=== PATIENT | male | born 1975 | race Caucasian/White ===

== ENCOUNTER 2025-02-07 12:59 | Observation (INO) | payer OTHER ==
--- NOTE | 2025-02-07 15:22 | ED ---
Alcohol HPI - General Chief Complaint: Alcohol Stated Complaint: detox Time Seen by Provider: 02/07/25 15:19 Source: patient, RN notes reviewed Mode of arrival: ambulatory - History of Present Illness Initial Comments: 49-year-old male male presenting for alcohol detox. States he drinks approximately 1/5 a day. Last drink was this morning. Denies history of withdrawal seizures. Admits to shakiness and diarrhea. Denies nausea, vomiting, fevers. - Related Data Allergies Allergy/AdvReac Type Severity Reaction Status Date / Time No Known Allergies Allergy Verified 02/07/25 13:18 Review of Systems ROS Statement: Those systems with pertinent positive or pertinent negative responses have been documented in the HPI. ROS Other: All systems not noted in ROS Statement are negative. Past Medical History Past Medical History: GERD/Reflux, Hypertension Additional Past Medical History / Comment(s): Chronic alcohol History of Any Multi-Drug Resistant Organisms: None Reported Past Surgical History: No Surgical Hx Reported Past Psychological History: Anxiety Smoking Status: Current every day smoker Past Alcohol Use History: Abuse, Daily Past Drug Use History: Marijuana General Exam - General Exam Comments Initial Comments: Visual Physical Exam Vital signs reviewed General: Well-appearing, nontoxic, no acute distress. Head: Normocephalic, atraumatic Eyes: PERRLA, EOMI ENT: Airway patent Chest: Nonlabored breathing Skin: No visual rash, normal skin tone Neuro: Alert and oriented 3 Musculoskeletal: No gross abnormalities General appearance: alert, in no apparent distress, anxious Head exam: Present: atraumatic, normocephalic, normal inspection Eye exam: Present: normal appearance, PERRL, EOMI. Absent: scleral icterus, conjunctival injection, periorbital swelling ENT exam: Present: normal exam, mucous membranes moist Respiratory exam: Present: normal lung sounds bilaterally. Absent: respiratory distress, wheezes, rales, rhonchi, stridor Cardiovascular Exam: Present: regular rate, normal rhythm, normal heart sounds. Absent: systolic murmur, diastolic murmur, rubs, gallop, clicks GI/Abdominal exam: Present: soft, normal bowel sounds. Absent: distended, tenderness, guarding, rebound, rigid Neurological exam: Present: alert, oriented X3 Psychiatric exam: Present: normal affect, normal mood Skin exam: Present: warm, dry, intact, normal color. Absent: rash Course Vital Signs 02/07/25 13:14 Temperature 98.3 F Pulse Rate 85 Respiratory 20 Rate Blood Pressure 156/110 O2 Sat by Pulse 98 Oximetry Medical Decision Making - Medical Decision Making I completed the quick note portion of this chart signed Rowena Davis PA-C Was pt. sent in by a medical professional or institution (ROXY Elliott, INTELLIGENCE OFFICER BASIC, urgent care, hospital, or penitentiary...) When possible be specific @ -No Did you speak to anyone other than the patient for history (EMS, parent, family, police, friend...)? What history was obtained from this source @ -No Did you review nursing and triage notes (agree or disagree)? Why? @ -I reviewed and agree with nursing and triage notes Were old charts reviewed (outside hosp., previous admission, EMS record, old EKG, old radiological studies, urgent care reports/EKG's, penitentiary records)? Report findings @ -No old charts were reviewed Differential Diagnosis (chest pain, altered mental status, abdominal pain women, abdominal pain men, vaginal bleeding, weakness, fever, dyspnea, syncope, headache, dizziness, GI bleed, back pain, seizure, CVA, palpatations, mental health, musculoskeletal)? @ -Not applicable EKG interpreted by me (3pts min.). @ -As above X-rays interpreted by me (1pt min.). @ -None done CT interpreted by me (1pt min.). @ -None done U/S interpreted by me (1pt. min.). @ -None done What testing was considered but not performed or refused? (CT, X-rays, U/S, labs)? Why? @ -None What meds were considered but not given or refused? Why? @ -None Did you discuss the management of the patient with other professionals (professionals i.e. ROXY Elliott, INTELLIGENCE OFFICER BASIC, lab, RT, psych nurse, social services manager, financial accounting analyst, teacher, aoc aadc operations staff officer, case resolution specialist)? Give summary @ -I spoke with Dr. Batista who accepts admission Was smoking cessation discussed for >3mins.? @ -No Was critical care preformed (if so, how long)? @ -No Were there social determinants of health that impacted care today? How? (Homelessness, low income, unemployed, alcoholism, drug addiction, transportatio n, low edu. Level, literacy, decrease access to med. care, intermediate, rehab)? @ -No Was there de-escalation of care discussed even if they declined (Discuss DNR or withdrawal of care, Hospice)? DNR status @ -No What co-morbidities impacted this encounter? (DM, HTN, Smoking, COPD, CAD, Cancer, CVA, ARF, Chemo, Hep., AIDS, mental health diagnosis, sleep apnea, morbid obesity)? @ -None Was patient admitted / discharged? Hospital course, mention meds given and route, prescriptions, significant lab abnormalities, going to OR and other pertinent info. @ -Admitted. 49-year-old male presenting for alcohol detox. Last drink was this morning. Patient is experiencing shakiness, anxiety. He is hypertensive. Provided with IV fluids and dose of Ativan. Lab work remarkable for white blood cell count 12, hypokalemia of 3.0, hypomagnesemia at 1.3. CIWA protocol initiated and patient will be admitted to medicine for alcohol withdrawal. Started on potassium and magnesium replacement. Patient will be admitted to medicine for alcohol withdrawal. Case was discussed with my ED attending Dr. Lara Undiagnosed new problem with uncertain prognosis? @ -No Drug Therapy requiring intensive monitoring for toxicity (Heparin, Nitro, Insulin, Cardizem)? @ -No Were any procedures done? @ -No Diagnosis/symptom? @ -Alcohol withdrawal Acute, or Chronic, or Acute on Chronic? @ -Acute Uncomplicated (without systemic symptoms) or Complicated (systemic symptoms)? @ -Complicated Side effects of treatment? @ -No Exacerbation, Progression, or Severe Exacerbation? @ -No Poses a threat to life or bodily function? How? (Chest pain, USA, AL, pneumonia, PE, COPD, DKA, ARF, appy, cholecystitis, CVA, Diverticulitis, Homicidal, Suicidal, threat to staff... and all critical care pts) @ -Yes - Lab Data Result diagrams: 02/07/25 15:52 02/07/25 15:52 Lab Results 02/07/25 02/07/25 02/07/25 Range/Units 15:52 15:52 15:52 WBC 12.84 H (4.50-10.00) 10*3/uL RBC 3.90 L (4.40-5.60) 10*6/uL Hgb 12.7 L (13.0-17.0) g/dL Hct 34.7 L (39.6-50.0) % MCV 89.0 (80.0-97.0) fL MCH 32.6 H (27.0-32.0) pg MCHC 36.6 (32.0-37.0) g/dL Plt Count 357 (140-440) 10*3/uL MPV 9.0 L (9.5-12.2) fL Immature Gran % (Auto) 0.4 % Neutrophils % 74.8 % Lymphocytes % 16.4 % Monocytes % 7.6 % Eosinophils % 0.2 % Basophils % 0.6 % Immature Gran # 0.05 H (0.00-0.04) 10*3/uL Neutrophils # 9.61 H (1.80-7.70) 10*3/uL Lymphocytes # 2.10 (0.90-5.00) 10*3/uL Monocytes # 0.97 (0.20-1.00) 10*3/uL Eosinophils # 0.03 L (0.04-0.35) 10*3/uL Basophils # 0.08 (0.00-0.10) 10*3/uL PT 11.1 (10.0-12.5) sec INR 1.0 (<1.2) APTT 24.7 (22.0-30.0) sec Sodium 138 (137-145) mmol/L Potassium 3.0 L (3.5-5.1) mmol/L Chloride 100 (98-107) mmol/L Carbon Dioxide 23 (22-30) mmol/L Anion Gap 15 mmol/L BUN 13 (9-20) mg/dL Creatinine 1.03 (0.66-1.25) mg/dL Est GFR (CKD-EPI)AfAm >90 (>60 ml/min/1.73 sqM) Est GFR (CKD-EPI)NonAf 85 (>60 ml/min/1.73 sqM) Glucose 104 H (74-99) mg/dL Calcium 9.8 (8.4-10.2) mg/dL Phosphorus 3.4 (2.5-4.5) mg/dL Magnesium 1.3 L (1.6-2.3) mg/dL Total Bilirubin 1.2 (0.2-1.3) mg/dL AST 55 (17-59) U/L ALT 37 (4-49) U/L Alkaline Phosphatase 174 H (38-126) U/L Total Protein 7.8 (6.3-8.2) g/dL Albumin 4.7 (3.5-5.0) g/dL Serum Alcohol <10 mg/dL - EKG Data -: EKG Interpreted by Me EKG Comments: EKG reveals normal sinus rhythm with no acute ST changes. Ventricular rate 91 bpm, MS interval 136, QRS duration 94, QT/QTc 374/423 Disposition Clinical Impression: Alcohol withdrawal Disposition: ADMITTED IP TO THIS HOSP Referrals: None,Stated [Primary Care Provider] - 1-2 days Time of Disposition: 19:29
[2025-02-07 16:00] LABS: Basophils # (A) 0.08 10*3/uL (0.00-0.10); Basophils % (A) 0.6 %; Eosinophils # (A) 0.03 10*3/uL (0.04-0.35); Eosinophils % (A) 0.2 %; HCT 34.7 % (39.6-50.0); HGB 12.7 g/dL (13.0-17.0); Lymphocytes % (A) 16.4 %; MCH 32.6 pg (27.0-32.0); MCHC 36.6 g/dL (32.0-37.0); Monocytes # (A) 0.97 10*3/uL (0.20-1.00); Monocytes % (A) 7.6 %; Neutrophils # (A) 9.61 10*3/uL (1.80-7.70); Neutrophils % (A) 74.8 %; Platelet Count 357 10*3/uL (140-440); RDW 13.3 % (11.5-14.5); WBC 12.84 10*3/uL (4.50-10.00)
[2025-02-07 16:08] LABS: Prothrombin Time 11.1 sec (10.0-12.5)
[2025-02-07 16:09] LABS: Partial Thromboplastin Time 24.7 sec (22.0-30.0)
[2025-02-07 16:10] LABS: ALT 37 U/L (4-49); AST 55 U/L (17-59); African American GFR (CKD) >90 (>60 ml/min/1.73 sqM); Albumin 4.7 g/dL (3.5-5.0); Alcohol <10 mg/dL; Alkaline Phosphatase 174 U/L (38-126); Anion Gap 15 mmol/L; Blood Urea Nitrogen 13 mg/dL (9-20); Calcium 9.8 mg/dL (8.4-10.2); Carbon Dioxide 23 mmol/L (22-30); Chloride 100 mmol/L (98-107); Glucose 104 mg/dL (74-99); Magnesium 1.3 mg/dL (1.6-2.3); Non-African American GFR(CKD) 85 (>60 ml/min/1.73 sqM); Phosphorus 3.4 mg/dL (2.5-4.5); Sodium 138 mmol/L (137-145); Total Bilirubin 1.2 mg/dL (0.2-1.3); Total Protein 7.8 g/dL (6.3-8.2)
[2025-02-07] MEDS ORDERED: LORazepam 0.5 MG TAB PO PRN (19:24)
[2025-02-07] MEDS ORDERED: LORazepam 1 MG/0.5 ML VIAL IV PRN ×2 (19:24)
[2025-02-07] MEDS ORDERED: NALOXONE 0.4 MG/ML 1 ML VIAL IV PRN (19:27)
[2025-02-07] MEDS ORDERED: IBUPROFEN 400 MG TAB PO PRN (19:27)
[2025-02-07] MEDS ORDERED: Potassium Replacement Protocol 1 EACH MISC MISCELLANE PRN (19:33)
[2025-02-07] MEDS ORDERED: Magnesium Replacement Protocol 1 EACH MISC MISCELLANE PRN (19:35)
[2025-02-07] MEDS: LORazepam 1 MG/0.5 ML VIAL IV STA (20:01)
[2025-02-07] MEDS: SODIUM CHLORIDE 0.9% 1,000 ML IV SCH (20:01)
[2025-02-07] MEDS: THIAMINE 100 MG/ML 2 ML VIAL IM STA (20:02)
[2025-02-07] MEDS: MAGNESIUM SULFATE-D5W PMX 1 GM in DEXTROSE/WATER 1 100ML.BAG IVPB SCH (20:03)
[2025-02-07] MEDS: POTASSIUM CHLORIDE 20 MEQ in WATER FOR INJECTION 1 100ML.BAG IVPB SCH (20:14)
[2025-02-08] MEDS: LORazepam 1 MG/0.5 ML VIAL IV PRN (01:01)
--- NOTE | 2025-02-08 01:25 | P.HPIM ---
History of Present Illness H&P Date: 02/07/25 49-year-old male with hypertension Presents with a history of heavy alcohol use, reporting consumption of approximately a fifth of alcohol daily for about a week. Last drink was yesterday morning or this morning. Patient is experiencing withdrawal symptoms, describing shaking that comes and goes. Denies current hallucinations or feeling things crawling. Has been through alcohol withdrawal before. No seizures from withdrawals in the past. Patient expresses desire to quit drinking, which is the primary reason for seeking medical attention. Admits to tobacco smoking marijuana and heavy alcohol review of systems Pertinent positives as noted in HPI. All other systems were reviewed and are negative Reports shaking that comes and goes. Psychiatric: Denies hallucinations or feeling things crawling. Gastrointestinal: Denies stomach pain. on exam Constitutional: No acute distress, conversant, pleasant Eyes: Anicteric sclerae, moist conjunctiva, Pupils equal round reactive to light ENMT: NC/AT Oropharynx clear, no erythema, or exudates Lungs: Clear to auscultation Clear to percussion Normal respiratory effort, no accessory muscle use Cardiovascular: Heart regular in rate and rhythm, No murmurs, gallops, or rubs No peripheral edema Abdominal: Soft Nontender, no guarding, rebound or rigidity Abdomen moving with respiration Normoactive bowel sounds Extremities: No digital cyanosis No clubbing Pedal pulses intact and symmetrical Radial pulses intact and symmetrical No calf tenderness Psychiatric: Alert and oriented to person, place and time Neuro Muscles Strength 5/5 in all 4 extremities Sensation to light touch grossly present throughout Cranial nerves II-XII grossly intact Past Medical History Past Medical History: GERD/Reflux, Hypertension Additional Past Medical History / Comment(s): Chronic alcohol History of Any Multi-Drug Resistant Organisms: None Reported Past Surgical History: No Surgical Hx Reported Past Psychological History: Anxiety Smoking Status: Current every day smoker Past Alcohol Use History: Abuse, Daily Past Drug Use History: Marijuana Medications and Allergies Allergies Allergy/AdvReac Type Severity Reaction Status Date / Time No Known Allergies Allergy Verified 02/07/25 13:18 Physical Exam Vitals: Vital Signs Temp Pulse Resp BP Pulse Ox 02/07/25 13:14 98.3 F 85 20 156/110 98 Intake and Output 02/07/25 02/07/25 02/07/25 06:59 14:59 22:59 Other: Weight 63.503 kg Results CBC & Chem 7: 02/07/25 15:52 02/07/25 15:52 Labs: Abnormal Lab Results - Last 24 Hours (Table) 02/07/25 02/07/25 Range/Units 15:52 15:52 WBC 12.84 H (4.50-10.00) 10*3/uL RBC 3.90 L (4.40-5.60) 10*6/uL Hgb 12.7 L (13.0-17.0) g/dL Hct 34.7 L (39.6-50.0) % MCH 32.6 H (27.0-32.0) pg MPV 9.0 L (9.5-12.2) fL Immature Gran # 0.05 H (0.00-0.04) 10*3/uL Neutrophils # 9.61 H (1.80-7.70) 10*3/uL Eosinophils # 0.03 L (0.04-0.35) 10*3/uL Potassium 3.0 L (3.5-5.1) mmol/L Glucose 104 H (74-99) mg/dL Magnesium 1.3 L (1.6-2.3) mg/dL Alkaline Phosphatase 174 H (38-126) U/L Assessment and Plan Assessment: 49-year-old male with hypertension and requesting detox from alcohol I discussed case with ED doctor and accepted the admission for alcohol withdrawal syndrome with anticipated length stay more than 2 midnights 1. Alcohol Withdrawal: alcohol abuse coming in presents with symptoms consistent with alcohol withdrawal, including shaking. Patient reports heavy daily alcohol use and expresses desire to quit. Plan: - Admit for inpatient alcohol detoxification - Monitor for worsening withdrawal symptoms, including potential for seizures - Initiate benzodiazepine CIWA protocol for alcohol withdrawal - Provide IV fluids for hydration - Administer thiamine and folate supplementation - Consult addiction medicine for long-term treatment planning 2. Alcohol Use Disorder: - Refer to outpatient addiction treatment program upon discharge - Provide resources for Alcoholics Anonymous and other support groups 3. Hypertension: Not currently on any treatment -Continue to monitor and assess if patient would require initiation on BP meds - Monitor blood pressure regularly during admission 4. Tobacco and Marijuana Use: - Provide smoking cessation counseling - Offer nicotine replacement therapy if desired - Educate on risks of continued marijuana use, especially during recovery from alcohol use disorder 5. Hypokalemia and hypomagnesemia Replace potassium orally and follow-up levels in the morning Replace magnesium 1 g IV piggyback per hour x 2 recheck levels in the morning Follow-up: - Schedule appointment with primary care physician within one week of discharge - Arrange follow-up with addiction medicine specialist full code DVT PPX lovenox 40 mg sc daily Rest of blood work reviewed overall unremarkable showing hemoglobin of 12.7 Sodium 138 BUN 13 creatinine 1
[2025-02-08] MEDS: THIAMINE 100 MG TAB PO SCH (10:26)
[2025-02-08] MEDS: ENOXAPARIN 40 MG/0.4 ML SYRINGE SQ SCH (10:26)
[2025-02-08 11:07] LABS: Blood Urea Nitrogen 12.4 mg/dL (9.0-27.0); Calcium 8.9 mg/dL (8.7-10.3); Carbon Dioxide 22.4 mmol/L (21.6-31.8); Chloride 101 mmol/L (96-109); Glucose 89 mg/dL (70-110); Potassium 3.6 mmol/L (3.5-5.5); Sodium 136 mmol/L (135-145)
--- NOTE | 2025-02-08 14:34 | P.PN ---
Subjective Progress Note Date: 02/08/25 49 year old M with PMH of HTN, Depression, EtOH abuse presents to the ED for alcohol detox. In the ED he underwent extensive evaluation. BP 156/110, HR 85, T 98.3F, RR 20, 98% on RA. Labs significant for WBC 12.84, RBC 3.9, Hg 12.7, Hct 34.7, K 3, glu 104, Mag 1.3, alk phos 174. EtOH < 10. EKG sinus rhythm incomplete RBB. Patient was admitted for further workup and management. 02/08 Patient was seen and examined. Received 2 mg IV ativan over the past 24H. Most recent CIWA of 5. Reports some tremors and nausea. He is adamant about wanting to quit. BMP shows AG 12.6. Mag 2. General: non toxic, no distress, appears at stated age Derm: warm, dry Head: atraumatic, normocephalic, symmetric Eyes: EOMI, no lid lag, anicteric sclera Mouth: no lip lesion, mucus membranes moist Cardiovascular: S1S2 reg, no murmur Lungs: Decreased BS bilateral, no rhonchi, no rales , no accessory muscle use Ext: no gross muscle atrophy, no edema, no contractures Neuro: no focal neuro deficits Psych: Alert, oriented, appropriate affect Based on my assessment of this patient, this patient meets a high complexity le rodriguez of care. Alcohol withdrawal: Tomorrow should be his peak of withdrawal. Continue CIWA protocol with Ativan PRN. Case management on board to give patient resources. Seizure and Fall precautions. Leukocytosis: Likely reactive. No signs of active infection. Monitor fever profile. Normocytic anemia: No signs of active bleeding. Recommend age appropriate CA screening. Hypertension: Amlodipine 5 mg PO QD. Depression and Insomnia: Proxac 30 mg PO QD. Hydroxyzine 50 mg PO QHS. Trazadone 100 mg PO QHS. Resolved: HypoK, HypoMag Anticipate DC home tomorrow if withdrawal symptoms remain under control. CODE STATUS: FULL CODE DVT Prophylaxis: Lovenox SQ GI Prophylaxis: Designated medical POA if patient is not able to make medical decisions for themselves: I have reviewed the following teamcenter consultant notes: I have reviewed the results of the following tests: BMP, Mag. I have ordered the following tests: CBC, Mag and BMP in the AM. I have discussed the care of this patient with the following independent historian: I have independently interpreted the following test below: I have discussed the management of this patient with the following physician: Objective - Vital Signs Vital signs: Vital Signs Temp 97.8 F 02/08/25 11:53 Pulse 78 02/08/25 11:53 Resp 16 02/08/25 11:53 BP 133/88 02/08/25 11:53 Pulse Ox 97 02/08/25 11:53 FiO2 Intake & Output 02/07/25 02/08/25 02/08/25 18:59 06:59 18:59 Weight 63.503 kg 63.503 kg Other: Voiding Method Toilet - Labs CBC & Chem 7: 02/07/25 15:52 02/08/25 06:45 Labs: Abnormal Lab Results - Last 24 Hours (Table) 02/07/25 02/07/25 02/08/25 Range/Units 15:52 15:52 06:45 WBC 12.84 H (4.50-10.00) 10*3/uL RBC 3.90 L (4.40-5.60) 10*6/uL Hgb 12.7 L (13.0-17.0) g/dL Hct 34.7 L (39.6-50.0) % MCH 32.6 H (27.0-32.0) pg MPV 9.0 L (9.5-12.2) fL Immature Gran # 0.05 H (0.00-0.04) 10*3/uL Neutrophils # 9.61 H (1.80-7.70) 10*3/uL Eosinophils # 0.03 L (0.04-0.35) 10*3/uL Potassium 3.0 L (3.5-5.1) mmol/L Anion Gap 12.60 H (4.00-12.00) mmol/L Glucose 104 H (74-99) mg/dL Magnesium 1.3 L (1.6-2.3) mg/dL Alkaline Phosphatase 174 H (38-126) U/L
[2025-02-08] MEDS: LORazepam 1 MG TAB PO PRN (16:10)
[2025-02-08] MEDS: hydrOXYzine pamoate 25 MG CAP PO SCH (20:08)
[2025-02-08] MEDS: PRAZOSIN 1 MG CAP PO SCH (20:09)
[2025-02-08] MEDS: traZODone HCL 100 MG TAB PO SCH (20:09)
[2025-02-09 06:49] LABS: HCT 35.5 % (39.6-50.0); HGB 12.4 g/dL (13.0-17.0); MCHC 34.9 g/dL (32.0-37.0); MCV 91.5 fL (80.0-97.0); Mean Platelet Volume 9.6 fL (9.5-12.2); Platelet Count 302 10*3/uL (140-440); RBC 3.88 10*6/uL (4.40-5.60); RDW 13.4 % (11.5-14.5); WBC 9.53 10*3/uL (4.50-10.00)
[2025-02-09 07:02] LABS: African American GFR (CKD) >90 (>60 ml/min/1.73 sqM); Anion Gap 9 mmol/L; Blood Urea Nitrogen 18 mg/dL (9-20); Calcium 9.4 mg/dL (8.4-10.2); Carbon Dioxide 23 mmol/L (22-30); Chloride 106 mmol/L (98-107); Glucose 88 mg/dL (74-99); Magnesium 1.8 mg/dL (1.6-2.3); Non-African American GFR(CKD) >90 (>60 ml/min/1.73 sqM); Potassium 3.4 mmol/L (3.5-5.1); Sodium 138 mmol/L (137-145)
[2025-02-09] MEDS: POTASSIUM CHLORIDE ER 20 MEQ TAB.ER PO STA (09:01)
[2025-02-09] MEDS: FLUoxetine HCL 20 MG CAP PO SCH (09:01)
[2025-02-09] MEDS: amLODIPine 5 MG TAB PO SCH (09:01)
[2025-02-09] MEDS: FLUoxetine HCL 10 MG CAP PO SCH (09:03)
[2025-02-09] MEDS: NALTREXONE HCL 50 MG TAB PO SCH (09:03)
[2025-02-09 09:59] VITALS: RESP 18
--- NOTE | 2025-02-09 11:45 | P.DS ---
Providers Date of admission: 02/07/25 19:29 Expected date of discharge: 02/09/25 Attending physician: Demi Batista MD Primary care physician: Stated None Hospital Course: Discharge Diagnosis: Alcohol withdraw Alcohol abuse Hypertension Hypomagnesemia, resolved Hypokalemia, replaced. Nicotine dependence Cannabinoid use Hospital Course: Patient is a pleasant 49-year-old male with a past medical history of hypertension, depression with anxiety, nicotine dependence, cannabinoid use, and daily alcohol abuse. He presented to our facility on 02/07/2025 for assistance with alcohol withdrawal. Upon arrival to our facility patient underwent evaluation in the emergency department. Vital signs upon arrival show blood pressure 156/110, heart rate 85, respiratory rate 20, temp 98.3 F, and SpO2 of 98% on room air. Labs were completed and reviewed. CBC revealing leukocytosis with WBC count of 12.84, hemoglobin 12.7, and MCH of 32.6. BMP showing hypokalemia with potassium of 3.0. Blood glucose was 104. Magnesium low at 1.3. Calcium 9.8. Liver profile showing elevated alkaline phosphatase of 174. Serum alcohol level was less than 10. Patient admitted under our services. Electrolytes replaced and patient received IV fluid hydration. Patient was placed on CIWA protocol with symptom triggered medication management with benzodiazepines for symptoms/signs of alcohol withdrawal. Patient's Ativan needs declined he is only required 3 mg of Ativan over the past 24 hours. Patient was provided with inpatient drug and alcohol rehabilitation facilities. Patient was able to secure placement in inpatient drug and alcohol rehabilitation facility. Patient medically optimized for discharge to rehab at this time. Physical exam: Patient seen and examined at bedside. Vital signs reviewed and stable. General: Nontoxic, no distress and appears stated age. Derm: Skin warm and dry, normal coloration for ethnicity. Head: Atraumatic, normocephalic and symmetric. Eyes: EOM's intact, no lid lag, and anicteric sclera Mouth: no lip lesions, mucus membranes moist Cardiovascular: regular rate and rhythm with normal S1S2, no murmur, positive posterior tibial pulses bilaterally, and cap refill < 2 seconds. Lungs: Respirations even, regular, and unlabored on room air. Lungs CTA bilaterally, no rhonchi, no rales, no wheezing, and no accessory muscle usage. Abdominal: soft, nontender to palpation, no guarding, no appreciable organomegaly Ext: ROM intact. No gross muscle atrophy, no edema, no contractures Neuro: Speech clear, face symmetrical and CN II-XII grossly intact with no noted focal neuro deficits Psych: Alert and oriented to person, place, time, and situation. Appropriate and pleasant affect. A total of 35 minutes of time were spent preparing this complex discharge summary. Pt was discharged on 02/09/2025 at 9:54 AM Patient was seen independently by Nurse Practitioner. This document was prepared using Jellynote dictation software. Please allow for errors in brake drum molder while rare they do occur. Nadir Torres NP rendered care for this patient independently, reviewed the findings and plan as documented in the note above. I did not physically speak with or examine the patient on this date. Patient Condition at Discharge: Stable Plan - Discharge Summary New Discharge Prescriptions: New Thiamine [Vitamin B-1] 100 mg PO DAILY 30 Days #30 tab Continue Prazosin [Minipress] 1 mg PO HS traZODone HCL [Desyrel] 100 mg PO HS FLUoxetine HCL [PROzac] 10 mg PO DAILY hydrOXYzine pamoate [Vistaril] 50 mg PO HS amLODIPine [Norvasc] 5 mg PO DAILY Naltrexone HCl 50 mg PO DAILY FLUoxetine HCL [PROzac] 20 mg PO DAILY Discharge Medication List FLUoxetine HCL [PROzac] 10 mg PO DAILY 02/08/25 [History] FLUoxetine HCL [PROzac] 20 mg PO DAILY 02/08/25 [History] Naltrexone HCl 50 mg PO DAILY 02/08/25 [History] Prazosin [Minipress] 1 mg PO HS 02/08/25 [History] amLODIPine [Norvasc] 5 mg PO DAILY 02/08/25 [History] hydrOXYzine pamoate [Vistaril] 50 mg PO HS 02/08/25 [History] traZODone HCL [Desyrel] 100 mg PO HS 02/08/25 [History] Thiamine [Vitamin B-1] 100 mg PO DAILY 30 Days #30 tab 02/09/25 [Rx] Follow up Appointment(s)/Referral(s): Constantine Reaves MD [STAFF PHYSICIAN] - 1 Week [facility] [NON-STAFF] - 1 Week Patient Instructions/Handouts: Abuse of Alcohol (DC), Alcohol Withdrawal (DC) Activity/Diet/Wound Care/Special Instructions: Activity: As tolerated. Diet: Heart healthy and carb consistent diet. Special Instructions: Take all of your medications as directed and remember to keep all of your doctor's appointments and follow-up as needed. Strongly recommend avoidance of any and all alcohol use Thank you for allowing us to participate in your care, it was truly a pleasure having you for our patient!!! Discharge Disposition: HOME SELF-CARE
[2025-02-09 15:34] VITALS: BP 119/72; PULSE 86; TEMP 98.8
--- NOTE | 2025-02-09 16:44 | CDI ---
Documentation Clarification Form Date: 02/09/2025 04:02:00 PM From: Caty Fields RN, CCDS Phone: [phone] Admit Date: 02/07/2025 06:57:00 PM Patient Name: Kiel Darby Visit Number: [id number] Discharge Date: 02/09/2025 04:18:00 PM ATTENTION: The Clinical Documentation Specialists (CDI) and [facility] Coding Staff appreciate your assistance in clarifying documentation. Please respond to the clarification below the line at the bottom and electronically sign. The CDI & [facility] Coding staff will review the response and follow-up if needed. Please note: Queries are made part of the Legal Health Record. If you have any questions, please contact the author of this message via ITS. DoctorMarito Vides Conflicting documentation has been found in the medical record. As attending physician, please provide clarification. 02/07 (Medicine) H/P: 69-year-old male with paroxysmal A-fib, hypertension patient presenting with irregular heartbeats and difficulty sleeping due to breathing issues 02/08 Cardiology consult and subsequent progress notes: New onset atrial fibrillation with controlled ventricular rate History/Risk Factors: Atrial Fibrillation, Heart Failure, COPD, Clinical Indicators: 69-year-old male with history of paroxysmal A-fib, per past medical history and H/P. Heart with irregular heartbeats and nocturnal breathing difficulties. 02/07 EKG: Atrial Fibrillation vent rate 95 94/71 74 18, 85/67 64 18 98.4 96% RA 02/07 LAB: D-Dimer 139, Trop <0.012, BNP 3370 02/07 CTA: NO PE, or ac pulmonary process Treatment: Cardiac /Telemetry Monitoring 02/09 PASCUAL with Cardioversion 150 J Eliquis 5 MG PO BID 02/08-02/09 Heparin drip per orders 02/07-02/08 Amiodarone HCl 360 MG @1 MG/MIN 02/07-02/07 (22:20-22:48) Cardizem 125 MG IV @ 5 MCG/HR 02/07-02/07 (16:15-23:04) Toprol Xl 25 MG PO Daily 02/08-02/09 Please clarify which diagnosis is most appropriate: [ ] Paroxysmal Atrial Fibrillation [ ] New onset atrial fibrillation with controlled ventricular rate (Type unknown) [ ] Other (please specify) [ ] Unable to determine (Template Last Revised: October 2020) MTDD
== END 2025-02-09 19:28 | disposition home or self-care (01) ==
LOC: EC 12:59 → 6NMEDSUR 19:29 → 1SOBS 02-08 06:32
PROVIDERS: ADMIT Internal Medicine; ATTEND Internal Medicine
DX: F10.139 Alcohol abuse with withdrawal, unspecified (principal); E87.6 Hypokalemia; E83.42 Hypomagnesemia; R74.8 Abnormal levels of other serum enzymes; I10 Essential (primary) hypertension; F12.90 Cannabis use, unspecified, uncomplicated; I45.10 Unspecified right bundle-branch block; D72.829 Elevated white blood cell count, unspecified; D64.9 Anemia, unspecified; G47.00 Insomnia, unspecified; F32.A Depression, unspecified; F41.9 Anxiety disorder, unspecified; F17.200 Nicotine dependence, unspecified, uncomplicated; Z79.899 Other long term (current) drug therapy; Z71.6 Tobacco abuse counseling
CPT/HCPCS: 96372 ×3; 96376; 96368 ×2; 96365; 96366 ×2; 96375; 99285; 36415; 93005; 80053; 80048 ×2; 83735 ×3; 84100; 85025; 85027; 85610; 85730; G0378 ×4; G0480; J2060 ×2; J3411; J3480 ×2; J1650 ×2; J3475; 80320